=== PATIENT | male | born 1955 | race Caucasian/White ===

== ENCOUNTER 2017-04-23 10:10 | Emergency (ER) | payer OTHER ==
[~2017-04-23] VITALS: Ht 182.9 cm; Wt 90.4 kg
[2017-04-23] MEDS ORDERED: METF500T4 PO (11:04)
[2017-04-23] MEDS ORDERED: CARV6.252 PO (11:04)
[2017-04-23] MEDS ORDERED: GLIM4TAB2 PO (11:04)
[2017-04-23] MEDS ORDERED: SODIUM CHLORIDE 0.9% 1,000 ML IV ONE (11:04)
[2017-04-23] MEDS ORDERED: SIMV20TA3 PO (11:04)
[2017-04-23] MEDS ORDERED: AMLO1CAP15 PO (11:04)
[2017-04-23] MEDS ORDERED: KETOROLAC 30 MG/1 ML ONE (11:11)
[2017-04-23] MEDS ORDERED: ONDANSETRON 2MG/ML, 2ML ONE (11:12)
[2017-04-23 11:21] LABS: HEMATOCRIT 46.6 % (39.2-51.8); WHITE BLOOD COUNT 12.7 x10^3/uL (3.4-10)
[2017-04-23] MEDS ORDERED: ONDANSETRON 2MG/ML, 2ML IVPush ONE (11:30)
[2017-04-23] MEDS ORDERED: SODIUM CHLORIDE 0.9% 1,000ML IVBOLUS ONE (11:30)
[2017-04-23] MEDS ORDERED: SODIUM CHLORIDE FLUSH 10ML SYR IVF ONE (11:30)
[2017-04-23] MEDS ORDERED: KETOROLAC 30 MG/1 ML IVPush ONE (11:30)
[2017-04-23 12:07] LABS: BLOOD UREA NITROGEN 25 mg/dL (7-18)
[2017-04-23 13:44] VITALS: BP 137/80
== END 2017-04-23 13:50 | disposition home or self-care (01) ==
LOC: ED 13:26
DX: N13.2 Hydronephrosis with renal and ureteral calculous obstruction (principal); I10 Essential (primary) hypertension; E11.65 Type 2 diabetes mellitus with hyperglycemia
CPT/HCPCS: 36415; 74176; 80048; 81003; 82040; 85025; 96361; 96374; 96375; 99285; J1885; J2405; J7030